=== PATIENT | female | born 1945 | race Hispanic/Latino ===

== ENCOUNTER 2016-12-03 08:25 | Emergency (ER) | payer OTHER ==
[2016-12-03 12:20] LABS: Basophils % (Auto) 1.4 % (0.0-1.8); Eosinophils % (Auto) 2.6 % (0.0-4.3); Hemoglobin 14.7 gm/dl (10.1-14.3); Mean Corpuscular HGB Conc 34 % (30-34); Mean Corpuscular Hemoglobin 32 pg (28-32); Mean Corpuscular Volume 95 fl (79-97); Platelet Count 161 K/mm3 (140-440); Red Blood Count 4.62 M/mm3 (3.65-5.03); Red Cell Distribution Width 13.9 % (13.2-15.2)
--- NOTE | 2016-12-03 12:36 | XRay Report ---
Chest 2 views: Compared to 06/14/16. History: Chest pain. Findings: Borderline cardiomegaly. Trachea is midline. No consolidation, pneumothorax or pleural effusion. Impression: Cardiomegaly. No acute lung changes.
[2016-12-03 12:39] LABS: Alanine Aminotransferase 35 units/L (7-56); Albumin 4.2 g/dL (3.9-5); Albumin/Globulin Ratio 1.6 %; Alkaline Phosphatase 54 units/L (35-129); Anion Gap 18 mmol/L; Bilirubin,Total 0.4 mg/dL (0.1-1.2); Blood Urea Nitrogen 7 mg/dL (7-17); Carbon Dioxide 25 mmol/L (22-30); Chloride 103.3 mmol/L (98-107); Creatine Kinase 76 units/L (30-135); Glucose 84 mg/dL (65-100); Potassium 4.6 mmol/L (3.6-5.0); Sodium 142 mmol/L (137-145); Total Protein 6.9 g/dL (6.3-8.2)
[2016-12-03 12:42] LABS: Bilirubin,Direct < 0.2 mg/dL (0-0.2)
[2016-12-03 13:02] VITALS: BP 158/92
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
== END 2016-12-03 13:13 | disposition home or self-care (01) ==
LOC: ED 08:25
DX: R07.89 Other chest pain (principal); E11.9 Type 2 diabetes mellitus without complications; M19.90 Unspecified osteoarthritis, unspecified site; E78.00 Pure hypercholesterolemia, unspecified; Z79.82 Long term (current) use of aspirin; Z88.0 Allergy status to penicillin; V89.2XXA Person injured in unspecified motor-vehicle accident, traffic, initial encounter; Y93.9 Activity, unspecified; Y99.9 Unspecified external cause status; Y92.410 Unspecified street and highway as the place of occurrence of the external cause
CPT/HCPCS: 36415; 71020; 80048; 80074; 82550; 84484; 85025; 93005; 93010

== ENCOUNTER 2017-11-05 14:07 | Emergency (ER) | payer MEDICARE, OTHER ==
--- NOTE | 2017-11-05 17:05 | XRay Report ---
FINAL REPORT PROCEDURE: XR NECK SOFT TISSUE TECHNIQUE: AP lateral view soft tissue neck HISTORY: foreign body COMPARISON: No prior studies are available for comparison. FINDINGS: Moderate degenerative changes of the cervical spine with volume loss of the C5-6 7 levels and anterior osteophytes. No definite foreign body seen at this time. IMPRESSION: No definite foreign body seen at this time. If symptoms and or concern persists recommend CT scan.
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
[2017-11-05 18:15] VITALS: BP 140/76
== END 2017-11-05 18:15 | disposition home or self-care (01) ==
LOC: ED 14:07
DX: J02.9 Acute pharyngitis, unspecified (principal); E11.9 Type 2 diabetes mellitus without complications; M19.90 Unspecified osteoarthritis, unspecified site; E78.5 Hyperlipidemia, unspecified; Z79.82 Long term (current) use of aspirin
CPT/HCPCS: 70360; 99283